=== PATIENT | female | born 1995 | race African-American/Black ===

== ENCOUNTER 2023-01-03 11:40 | Outpatient (CLI) | payer MEDICAID, SELFPAY ==
[2023-01-03 12:05] VITALS: BMI 34.7
[2023-01-03 12:12] VITALS: BP 112/66; PULSE 90
[2023-01-03 12:33] LABS: ROM Internal Control Test YES-OK TO RESULT pt. (Internal QC); ROM Patient Test Negative (Negative); Record Kit Lot#, ROM+ K1374
--- NOTE | 2023-01-03 20:03 | PCM.HP.OB ---
HPI - General HPI Narrative KENY JEROME, is a 27 F at 34 weeks gestation who presents to triage with leaking of fluid. Patient receiving care through OBGYN in [facility] and was in town visiting with family. She reports positive movement and denies any contractions or cramping. has been uncomplicated. Maternal Data Information RUTHY Calculator Estimated Delivery Date Method Current WG Current Estimate 02/14/23 Manual 34w 0d PFSH PFSH Allergy/AdvReac Type Severity Reaction Status Date / Time No Known Allergies Allergy Verified 01/03/23 12:40 NST FHR Rate Baby A Baseline: 130 Variability:: Moderate Accelerations:: 15 x 15 Decelerations:: None NST Reactive:: Yes FHR Category:: Category I Uterine Activity:: None ROS Eyes Eyes: Denies blurry vision Cardiovascular Cardiovascular: Reports none; Denies chest pain at rest, chest pain with activity or dizziness Respiratory/Chest Respiratory/Chest: Denies cough or dyspnea Gastrointestinal Gastrointestinal: Reports none and other; Denies diarrhea or vomiting Genitourinary Genitourinary: Denies dysuria Musculoskeletal Musculoskeletal: Reports none Integumentary Integumentary: Reports none; Denies rash Neurologic Neurologic: Denies dizziness, headache(s) or other visual disturbances Psychiatric Psychiatric: Reports none Vital Signs Vital Signs Vital Signs: 01/03/23 12:12 01/03/23 12:12 Pulse Rate 90 Blood Pressure 112/66 BP Systolic 112 BP Diastolic 66 Weight Weight: 228 lb 2.855 oz Body Mass Index (BMI) 34.7 Labs Labs Labs: No Data to Display Assessment & Plan (1) 34 weeks gestation of : (2) Leakage of amniotic fluid: (3) NST (non-stress test) reactive on surveillance: PLAN: Plan NST reactive No contractions via TOCO or palpation ROM plus- NEGATIVE D/C home with follow up with regular OBGYN
== END 2023-01-03 12:48 | disposition home or self-care (01) ==
LOC: WPOUT 11:47 → WP 11:48
PROVIDERS: Referring Provider Obstetrics & Gynecology; Visit Provider Obstetrics & Gynecology
DX: O42.913 Preterm premature rupture of membranes, unspecified as to length of time between rupture and onset of labor, third trimester (principal); Z3A.34 34 weeks gestation of pregnancy
CPT/HCPCS: 59025; 59050; 84112; 99221; G0378